=== PATIENT | female | born 1975 | race Caucasian/White ===

== ENCOUNTER 2021-06-14 11:43 | Outpatient (REF) | payer BC, SELFPAY ==
[2021-06-14 13:25] LABS: MANUAL DIFF FLAG NO
[2021-06-14 13:34] LABS: Basophils Percent Auto 0.3 % (0-2); Eosinophils Absolute Auto 0.1 X10*3/uL (0.0-0.4); Eosinophils Percent Auto 1.7 % (0-4); Hematocrit 39.3 % (37.0-47.0); Hemoglobin 12.9 g/dl (12.0-16.0); Imm Gran Abs Auto 0.01 X10*3/uL (0.00-0.03); Imm Gran Pct Auto 0.1 % (0.0-0.4); Lymphocytes Absolute Auto 2.9 X10*3/uL (1.2-4.9); Lymphocytes Percent Auto 38.6 % (20-40); Mean Corpuscular HGB Conc 32.8 g/dl (31.0-35.0); Mean Corpuscular Hemoglobin 29.6 pg (27.0-33.0); Mean Corpuscular Volume 90.1 fL (80.0-98.0); Mean Platelet Volume 9.7 fL (9.4-12.3); Monocytes Absolute Auto 0.5 X10*3/uL (0.1-1.2); Neutrophils Absolute Auto 3.9 x10*3/uL (2.0-8.3); Neutrophils Percent Auto 52.3 % (45-73); Platelet Count 313 X10*3/uL (160-400); Red Blood Count 4.36 X10*6/uL (4.20-5.50); Red Cell Distribution Width 13.2 % (11.0-16.0); White Blood Count 7.5 X10*3/uL (4.8-10.8)
[2021-06-14 13:40] LABS: Alanine Aminotransferase 14 U/L (0-31); Alkaline Phosphatase 51 U/L (39-117); Anion Gap 11 (12-20); Aspartate Amino Transferase 19 U/L (5-31); Bilirubin Total 0.5 mg/dL (0.0-1.0); Blood Urea Nitrogen 16 mg/dL (9-16); Calcium 9.6 mg/dL (8.4-10.2); Carbon Dioxide 25 mmol/L (22-29); Chloride 105 mmol/L (96-108); Cholesterol 187 mg/dL; Estimated Glomerular Filt Rate > 60; Glucose Random 87 mg/dL (60-115); HDL Cholesterol 52 mg/dL; LDL Cholesterol Calculated 106 mg/dl; Potassium 4.7 mmol/L (3.3-5.1); Sodium 136 mmol/L (135-145); Total Protein 6.7 g/dL (6.5-8.0); Triglycerides 148 mg/dL
== END 2021-06-14 11:44 | disposition home or self-care (01) ==
LOC: HO.10HDL 11:43
PROVIDERS: PCP Internal Medicine; Visit Provider Internal Medicine
DX: Z00.00 Encounter for general adult medical examination without abnormal findings (principal); F32.5 Major depressive disorder, single episode, in full remission
CPT/HCPCS: 36415; 80053; 80061; 85025

== ENCOUNTER 2021-07-27 08:02 | Outpatient (REF) | payer BC, SELFPAY ==
[2021-07-27 11:40] LABS: Rheumatoid Factor < 15.0 IU/mL (<15.0)
[2021-07-27 12:32] LABS: Erythrocyte Sedimentation Rate 3 MM/HR (0-20)
[2021-07-29 09:06] LABS: Lyme Abs Screen <0.90 index
[2021-07-31 23:47] LABS: Cyclic Citrullinated Peptide <16 UNITS
[2021-08-01 10:36] LABS: Anti Nuclear Antibody Pattern Nuclear, Homogeneous; Anti Nuclear Antibody Screen POSITIVE (NEGATIVE); Anti Nuclear Antibody Titer 1:40 titer
== END 2021-07-27 08:03 | disposition home or self-care (01) ==
LOC: HO.WFDLDS 08:02
PROVIDERS: Visit Provider Internal Medicine
DX: M13.0 Polyarthritis, unspecified (principal); M22.2X1 Patellofemoral disorders, right knee
CPT/HCPCS: 36415; 85652; 86038; 86039; 86200; 86431; 86617; 86618

== ENCOUNTER 2021-09-05 16:18 | Outpatient (REF) | payer BC, SELFPAY ==
--- NOTE | ~2021-09-05 | CT_ITS ---
EXAMINATION: CT PELVIS WITHOUT CONTRAST CLINICAL INFORMATION: Intra-abdominal and pelvic swelling, mass, lump. COMPARISON: None TECHNIQUE: Helical scanning was performed with submillimeter collimation through the pelvis. Sagittal and coronal multiplanar 2-D reconstructions were obtained. Study was done with patient doing Valsalva. This CT examination was performed using dose optimization techniques as appropriate, variously including the following: *Automated exposure control *Adjustment of mA and/or kV according to patient size (this includes techniques or standardized protocols for targeted exams where dose is matched to indication/reason for exam; i.e. extremities or head) *Use of iterative reconstruction technique DLP: 672 mGy-cm FINDINGS: PELVIS: About the right inguinal region there is a 2.4 x 1.5 x 2.6 cm fluid collection in the canal of Nuck. No definite hernia is appreciated. This represents a hydrocele. This is an extension of the perineum into the inguinal canal. No abnormal masses appreciated. No lymphadenopathy is seen. OSSEOUS STRUCTURES: Unremarkable. CT/CT pelvis wo con IMPRESSION: Right inguinal fluid collection corresponding to a benign hydrocele in the canal of Nuck.
== END 2021-09-05 16:19 | disposition home or self-care (01) ==
LOC: HO.CT 16:18
PROVIDERS: PCP Internal Medicine; Visit Provider Surgery
DX: R19.09 Other intra-abdominal and pelvic swelling, mass and lump (principal)
CPT/HCPCS: 72192

== ENCOUNTER 2022-03-02 10:43 | Outpatient (REF) | payer BC, SELFPAY ==
[2022-03-02 16:42] LABS: Urine Cytology See Pathology rpt
== END 2022-03-02 10:44 | disposition home or self-care (01) ==
LOC: HO.LAB 10:43
PROVIDERS: PCP Internal Medicine; Visit Provider Nurse Practitioner Family
DX: N94.89 Other specified conditions associated with female genital organs and menstrual cycle (principal)
CPT/HCPCS: 88112

== ENCOUNTER 2022-03-23 09:36 | Outpatient (REF) | payer BC, SELFPAY ==
--- NOTE | ~2022-03-23 | MR_ITS ---
EXAMINATION: MR PELVIS WITHOUT AND WITH CONTRAST CLINICAL INFORMATION: Hydrocele, follow-up. COMPARISON: CT scan of the pelvis dated 09/05/2021. TECHNIQUE: MRI of the pelvis was obtained before and after the administration of intravenous contrast (9 mm Gadavist) using usual sequences and projections. FINDINGS: UTERUS: Anteverted/anteflexed. The fibromuscular junction is ill-defined superficially and measures up to approximately 1.1 cm at the level the anterior body (image 16, series 4. Mild cystic changes are seen in the myometrium with heterogeneity. The endometrium is unremarkable. The cervix is closed without abnormality. OVARIES: Unremarkable. URINARY BLADDER/DISTAL URETERS: Unremarkable. BOWEL: The visualized small and large bowel are unremarkable. LYMPH NODES: No lymphadenopathy. VASCULAR: Unremarkable. OSSEOUS: Unremarkable. SOFT TISSUES: A T2 hyperintense, thin-walled nonenhancing focus is seen in the right inguinal canal measuring approximately 2.8 x 2.1 x 2.5 cm (image 22, series 7; image 26, series 5; image 26, series 9). MR/MR pelvis wo/w con IMPRESSION: 1. Small right fluid collection in the right inguinal canal (Canal of Nuck) demonstrate benign features. This correlates with CT findings. Correlation with physical exam is recommended. If this finding persists or enlarges, this can be monitored with targeted soft tissue ultrasound as clinically indicated. 2. Uterine findings suggest adenomyosis.
== END 2022-03-23 09:37 | disposition home or self-care (01) ==
LOC: HO.MRI 09:36
PROVIDERS: Visit Provider Nurse Practitioner Family
DX: N94.89 Other specified conditions associated with female genital organs and menstrual cycle (principal)
CPT/HCPCS: 72197; A9585

== ENCOUNTER → 2022-04-04 10:29 | Outpatient (BNVA) | payer BC, SELFPAY | PROVIDERS: PCP Internal Medicine; Visit Provider Nurse Practitioner Family | DX: Z13.89 Encounter for screening for other disorder (principal) ==

== ENCOUNTER 2022-10-25 12:36 | Outpatient (REF) | payer BC, SELFPAY ==
--- NOTE | ~2022-10-25 | XR_ITS ---
EXAMINATION: XR SHOULDER, RIGHT CLINICAL INFORMATION: Right shoulder pain COMPARISON: None available. TECHNIQUE: 3 views of the right shoulder. FINDINGS: The bones and soft tissues are normal. No fracture. Glenohumeral and acromioclavicular alignment is anatomic with normal joint space. No abnormal soft tissue calcifications. XR/XR shoulder RT min 2V IMPRESSION: Normal right shoulder.
== END 2022-10-25 12:37 | disposition home or self-care (01) ==
LOC: HO.HOSX 12:36
PROVIDERS: PCP Internal Medicine; Visit Provider Physician Assistant
DX: M75.101 Unspecified rotator cuff tear or rupture of right shoulder, not specified as traumatic (principal)
CPT/HCPCS: 73030

== ENCOUNTER 2022-10-25 12:36 | Outpatient (AMB) | payer BC, SELFPAY ==
--- NOTE | 2022-10-25 12:39 | A.OFFVIS_ITS ---
Intake Vital Signs 10/25/22 12:41 Height 5 ft 9 in Weight 195 lb BMI 28.8 Intake Visit Reasons: New Pt - right shoulder pain Intake Note: Jayleen is a 47 year old female who presents today as a new patient for a evaluation for her right shoulder pain. States pain started on July 09, 2022, while doing in door rock climbing. States she lost her footing and ending up holding on only with her right arm. Seen with her PCP 2 weeks after who Rx'd P.T. Patient reports P.T has helped but she was advise to see an Orthopedic for further evaluation.States she also has numbness very rarely in her fingertips. No injection for her right shoulder in the past. Allergies Penicillins Allergy (Unknown, Verified 10/25/22 12:41) rash HPI New Pt - right shoulder pain HPI Details 47-year-old female who presents in the office today, as a new patient, for an evaluation of right shoulder pain. The patient reports on 07/09/2022 his pain began while doing in-door rock climbing. She claims she lost her footing and was holding on with only her right upper extremity. She presented to her PCP 2 weeks status post the injury where she was referred to Physical Therapy. She states the Physical Therapy has helped, but she was advised to follow up with Orthopedics for further evaluation. She reports numbness occupationally in her fingertips. Patient denies a history of cortisone injections. 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 Review of Systems Const All systems reviewed & are unremarkable except as noted in HPI and below Physical Exam Vital Signs: BMI result Body Mass Index 28.8 Const General: cooperative and no acute distress Orientation/consciousness: patient oriented x3 Resp Effort & Inspection: normal respiratory effort and able to speak in complete sentences Cardio Rate: regular rate Peripheral pulses: Peripheral pulses 2+ throughout GI Palpation (GI): Soft to palpation Skin General skin exam: no rashes or lesions noted Lesions: no lesions Rashes: no rashes Neuro General: patient oriented x3 Extrem Other: Right shoulder: Normal to inspection. No ecchymosis, erythema, or edema. Full shoulder ROM in all planes. Positive cross-body reach. 4/5 strength with empty can. Negative drop arm. NVI. Assessment & Plan Assessment & Plan (1) Painful arc syndrome of right shoulder: Code(s): M75.101 - Unspecified rotator cuff tear or rupture of right shoulder, not specified as traumatic Plan Ms. Fletcher is a 47-year-old female who presents in the office today, as a new patient, for an evaluation of right shoulder pain. The patient reports on 07/09/2022 his pain began while doing in-door rock climbing. She claims she lost her footing and was holding on with only her right upper extremity. She presented to her PCP 2 weeks status post the injury where she was referred to Physical Therapy. She states the Physical Therapy has helped, but she was advised to follow up with Orthopedics for further evaluation. She reports numbness occupationally in her fingertips. Patient denies a history of cortisone injections. The patient has trialed 6 weeks of physical therapy for the right shoulder, but has plateaued. She reports she still has stiffness and pain. Therefore we will refer her for an MRI to further evaluate the integrity of the right shoulder and surrounding structures. Follow up will be after the MRI is obtained, or sooner if needed. X-rays of the right shoulder which were obtained while in the office today and were reviewed by me, Rebecca Arciniega PA-C, revealed no evidence of acute fracture or dislocation. Orders: Orders XR shoulder RT min 2V Today M25.519 - Pain in unspecified shoulder Patient Instructions: Scribed for Rebecca Arciniega PA-C by Sandra Marquez medical transcriptionist, on 10/25/2022 at 12:41 pm, EST. Coding Level of Care Code New Pt Level 4 (72001) Diagnoses Painful arc syndrome of right shoulder M75.101
[2022-10-25 12:41] VITALS: BMI 28.8
== END 2022-10-25 13:40 | disposition home or self-care (01) ==
PROVIDERS: PCP Internal Medicine; Visit Provider Physician Assistant
DX: M75.101 Unspecified rotator cuff tear or rupture of right shoulder, not specified as traumatic (principal)
CPT/HCPCS: 99204

== ENCOUNTER 2022-11-09 11:22 | Outpatient (AMB) | payer BC, SELFPAY ==
--- NOTE | 2022-11-09 11:29 | A.OFFVIS_ITS ---
Intake Vital Signs 11/09/22 11:30 Height 5 ft 9 in Weight 195 lb BMI 28.8 Intake Visit Reasons: OV-Right shoulder pain MRI Review Intake Note: Jayleen is a 47 year old female who presents today for a MRI review of her right shoulder. Allergies Penicillins Allergy (Unknown, Verified 11/09/22 11:30) rash HPI OV-Right shoulder pain MRI Review HPI Details 47-year-old female who presents in the [facility] today for a follow up of right shoulder pain and review of her MRI results. 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 No ecchymosis, erythema, or edema. Full shoulder ROM in all planes. Positive cross-body reach. 4/5 strength with empty can. Negative drop arm. NVI. Office Procedures Joint Injection/Drain Joint Injection/Drain Primary Site: right shoulder Prep: site was prepped using aseptic technique, ethochloride spray was applied and injection warnings given Injected: 80 mg of, DepoMedrol, with 8 mL of (2% plain lido ) and in the subcromial space Approach Used: posterolateral Procedure: The patient tolerated the procedure well, but had some pain with the injection and there was some relief with the local anesthesia Coding 09243 - Large joint Procedure code (CPT) selection complete Results Reviewed Results Reviewed: 11/09/22 11:51 Lidocaine HCl 2 % MPF [Xylocaine 2 % MPF] 5 ml .ROUTE .STK-MED ONE methylPREDNISolone acetate [DEPO-MedroL] 80 mg .ROUTE .STK-MED ONE Assessment & Plan Assessment & Plan (1) Painful arc syndrome of right shoulder: Code(s): M75.101 - Unspecified rotator cuff tear or rupture of right shoulder, not specified as traumatic Plan Ms. Fletcher is a 47-year-old female who presents in the office today for a follow up of right shoulder pain and review of her MRI results. The patient was offered a cortisone injection in the right shoulder with 80 mg of DepoMedrol. The patient was explained the risk, benefits, and alternatives to receiving this injection. After receiving consent for the injection, the patient had the procedure done while in office today. The patient tolerated the procedure well with no complications. I recommended for the patient to be further evaluated by Dr. Molina to further discuss MRI findings. Follow up will be with Dr. Molina, or sooner if needed. MRI of the right shoulder, obtained on 10/31/2022, revealed: 1. Nondisplaced undersurface tearing of the superior, posterosuperior, posterior, and posteroinferior labrum. 2. Mild infraspinatus tendinosis without a measurable rotator cuff tendon tear. 3. Minimal subacromial-subdeltoid bursitis. 4. Trace glenohumeral joint effusion. Patient Instructions: Scribed for Rebecca Arciniega PA-C by kameron Hancock scribe, on 11/09/2022 at 11:47 am, EST. Coding Level of Care Code Est Pt Level 3 (92869) Diagnoses Painful arc syndrome of right shoulder M75.101 CPT Codes Coding - 81926 Large joint: 06075 - Large joint ([id number])
[2022-11-09 11:30] VITALS: BMI 28.8
== END 2022-11-09 12:02 | disposition home or self-care (01) ==
PROVIDERS: PCP Internal Medicine; Visit Provider Physician Assistant
DX: S43.431A Superior glenoid labrum lesion of right shoulder, initial encounter (principal)
CPT/HCPCS: 20610; 99213

== ENCOUNTER → 2022-11-09 11:22 | Outpatient (BNVA) | payer BC, SELFPAY | PROVIDERS: PCP Internal Medicine; Visit Provider Physician Assistant | DX: M75.101 Unspecified rotator cuff tear or rupture of right shoulder, not specified as traumatic (principal) | CPT/HCPCS: 20610; J1040 ==

== ENCOUNTER 2022-11-22 12:25 | Outpatient (AMB) | payer BC, SELFPAY ==
--- NOTE | 2022-11-22 12:29 | MHC.OFFVIS ---
Intake Vital Signs 11/22/22 12:30 Height 5 ft 9 in Weight 195 lb BMI 28.8 Intake Visit Reasons: OV-Right shoulder pain Intake Note: Jayleen is a 47 year old female who presents today for a follow up of her right shoulder. She was last seen with Rebecca on 11/09/22 for an MRI review, where she also received an injection. This injection has helped but she is looking to discuss surgery. Accompanied by: Mother Allergies Penicillins Allergy (Unknown, Verified 11/22/22 12:32) rash HPI OV-Right shoulder pain HPI Details Jayleen is a 47 year old woman who presents to discuss her right RTC tear, S/P rock climbing accident, DOI: 11/09/22. She complains of pain and stiffness with daily activity, worse with overhead activity and at night. She received a steroid injection by ANEL Arciniega on 11/09/22 and says she has little pain at this time following the injection, She is able to perform most daily activities with tolerable pain, and has not been rock-climbing since her injury She has completed a course of PT, which helped, but she feels she plateaued in her recovery. 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 Review of Systems Const All systems reviewed & are unremarkable except as noted in HPI and below Physical Exam Vital Signs: BMI result Body Mass Index 28.8 Const General: no acute distress, alert and awake Orientation/consciousness: patient oriented x3 HEENT Head: Yes normocephalic and Yes atraumatic Eyes EOM: EOMs intact bilaterally Resp Effort & Inspection: normal respiratory effort and able to speak in complete sentences Cardio Jugular venous distension: no JVD Skin General skin exam: turgor normal Rashes: no rashes Neuro General: patient oriented x3 Extrem Other: Right Shoulder: Full ROM + O'Briens Psych Appearance: grossly normal Affect: normal affect Attitude: cooperative Results Reviewed Results Reviewed: I personally reviewed relevant MR images 1. Nondisplaced undersurface tearing of the superior, posterosuperior, posterior, and posteroinferior labrum. 2. Mild infraspinatus tendinosis without a measurable rotator cuff tendon tear. 3. Minimal subacromial-subdeltoid bursitis. 4. Trace glenohumeral joint effusion. Assessment & Plan Assessment & Plan (1) Superior labrum uilhpcij-ru-ogtrqrhaj (SLAP) tear of right shoulder: Code(s): S43.431A - Superior glenoid labrum lesion of right shoulder, initial encounter Plan: This is a 47 year old woman with a right shoulder SLAP tear, from an injury, DOI: 07/09/22. She reports minimal pain in her shoulder following her steroid injection on 11/09/22, and is able to perform most daily activities with tolerable pain. She had some improvement from PT and continues at-home exercises. I discussed her diagnosis and treatment options. No acute intervention warranted at this time. I recommend PT, NSAIDs, strengthening, and she continue with activity as tolerated, and be mindful to not push through pain. I ordered a new course of PT, she can follow up prn. Plan Scribed for Corbin Molina MD by Maximo Rodriguez, pediatrician/medical doctor, on 11/22/22 at 12:50 PM, EST. Orders: Orders PT Evaluation and Treatment Today S43.431A - Superior glenoid labrum lesion of right shoulder, initial encounter Coding Level of Care Code Est Pt Level 4 (66384) Diagnoses Superior labrum etplqmxr-np-jhpvxbnnp (SLAP) tear of right shoulder S43.431A
[2022-11-22 12:30] VITALS: BMI 28.8
== END 2022-11-22 12:58 | disposition home or self-care (01) ==
PROVIDERS: PCP Internal Medicine; Visit Provider Orthopaedic Surgery
DX: S43.431A Superior glenoid labrum lesion of right shoulder, initial encounter (principal)
CPT/HCPCS: 99213

== ENCOUNTER → 2022-11-22 12:25 | Outpatient (BNVA) | payer BC, SELFPAY | PROVIDERS: PCP Internal Medicine; Visit Provider Orthopaedic Surgery ==

== ENCOUNTER 2023-08-08 08:41 | Outpatient (REF) | payer BC, SELFPAY ==
[2023-08-08 10:54] LABS: MANUAL DIFF FLAG NO
[2023-08-08 11:01] LABS: Basophils Percent Auto 0.4 % (0-2); Eosinophils Absolute Auto 0.2 X10*3/uL (0.0-0.4); Eosinophils Percent Auto 2.3 % (0-4); Hemoglobin 13.2 g/dl (12.0-16.0); Imm Gran Abs Auto 0.01 X10*3/uL (0.00-0.03); Imm Gran Pct Auto 0.1 % (0.0-0.4); Lymphocytes Absolute Auto 2.4 X10*3/uL (1.2-4.9); Lymphocytes Percent Auto 33.2 % (20-40); Mean Corpuscular HGB Conc 33.8 g/dl (31.0-35.0); Mean Corpuscular Hemoglobin 29.3 pg (27.0-33.0); Mean Corpuscular Volume 86.5 fL (80.0-98.0); Mean Platelet Volume 9.1 fL (9.4-12.3); Monocytes Absolute Auto 0.6 X10*3/uL (0.1-1.2); Monocytes Percent Auto 7.9 % (2-11); Neutrophils Percent Auto 56.1 % (45-73); Platelet Count 328 X10*3/uL (160-400); Red Blood Count 4.51 X10*6/uL (4.20-5.50); White Blood Count 7.1 X10*3/uL (4.8-10.8)
[2023-08-08 11:25] LABS: Alanine Aminotransferase 15 U/L (0-31); Alkaline Phosphatase 65 U/L (39-117); Anion Gap 10 (12-20); Aspartate Amino Transferase 18 U/L (5-31); Bilirubin Total 0.5 mg/dL (0.0-1.0); Blood Urea Nitrogen 13 mg/dL (9-16); Calcium 9.1 mg/dL (8.4-10.2); Carbon Dioxide 26 mmol/L (22-29); Chloride 106 mmol/L (96-108); Cholesterol 191 mg/dL (<200); Estimated Glomerular Filt Rate > 60; Glucose Random 97 mg/dL (60-115); HDL Cholesterol 47 mg/dL (>40); LDL Cholesterol Calculated 122 mg/dL (<100); Potassium 3.9 mmol/L (3.3-5.1); Sodium 138 mmol/L (135-145); Total Protein 6.8 g/dL (6.5-8.0); Triglycerides 114 mg/dL (<150)
== END 2023-08-08 08:42 | disposition home or self-care (01) ==
LOC: HO.10HDL 08:41
PROVIDERS: Visit Provider Internal Medicine
DX: Z00.00 Encounter for general adult medical examination without abnormal findings (principal); F32.5 Major depressive disorder, single episode, in full remission; Z68.29 Body mass index [BMI] 29.0-29.9, adult
CPT/HCPCS: 36415; 80053; 80061; 85025

== ENCOUNTER 2024-11-23 12:40 | Day surgery (SDC) | payer BC, SELFPAY ==
--- OUTSIDE RECORDS SUMMARY | 2024-10-28 11:09 | XMS_ITS | Patient Health Record ---
Author Organization [facility] Address [address] [place] [address] Care Team Providers Care Mathematics Teacher Name Role Phone Leyla Soto Primary Care Provider Delvin Sanderson Unavailable [phone] Allergies Allergen (clinical drug ingredient) Drug/Non Drug Allergy documented on EMR Reaction Allergy Type Onset Date Status Pollen (e.g. tree, grass) Unknown Allergy Active Dust Mites Unknown Allergy Active Cats Unknown Allergy Active Reason For Referral Referring Provider First Name Leyla Referring Provider Last Name Tera Referring Provider Speciality Internal M edicine Referred Organization [facility] Referred Provider Delvin Torres Referred Address [address] [place] [address],[address],[place], [place],[address], Referred Provider Specialty Gastroentero logy General Notes Catalina Chand 2024 08:03:44 AM >REQUEST AN O BLUE REFERRAL FROM DR SOTO'S OFFICE FOR VISIT WITH DR TORRES ON 09-08-24 [phone], Catalina Chand 08/10/2024 09:44:25 AM >requested referral from dr soto's office Referral Priority Routine Medications Medication SIG (Take, Route, Frequency, Duration) Notes Start Date End Date Status ZyrTEC 10 MG 1 tablet Orally Once a day for 30 day(s) 09/08/2024 Active buPROPion HCl ER (XL) 300 MG 1 tablet in the morning Orally Once a day for 30 day(s) 09/08/2024 Active Amphetamine Sulfate 5 MG 1 tablet Orally Once a day 09/08/2024 Active FLUoxetine HCl 20 MG 1 capsule Orally On ce a day for 30 day(s) 09/08/2024 Active Daily Vitamin 09/08/2024 Activ e Immunizations Vaccine Route Administration Date Status Comme nts Influenza Unknown 12/17/2023 Administered Social History Tobacco Use: Social History Observation Description Date Details (start date - stop date) Never Smoker NA - NA Tobacco Control (Standard) Question Answer Notes Tobacco use: Nonsmoker AUDIT-C (Standard) Question Answer Notes Did you have a drink contain ing alcohol in the past year? Yes How often did you have a dri nk containing alcohol in the past year? 2 to 4 times a month (2 points) How many drinks did you have on a typical day when you were drinking in the past year? 1 or 2 drinks (0 point) How often did you have six o r more drinks on one occasion in the past year? Never (0 point) Points 2 Interpretation Negative Section Notes: Nonsmoker; no sig alcohol Problems Problem Type SNOMED Code ICD Code Onset Dates Problem Status W/U Status Risk Notes Problem Colon cancer screening (Z12.11) Active confirmed Problem Preprocedural examination ([id number]) Preprocedural examination (Z01.818) Active confirmed Vital Signs Temperature 98.4 degrees Fahrenheit 09/08/2024 Blood pressure diastolic 01 mm Hg 09/08/2024 Height 69 in 09/08/2024 Blood pressure systolic 001 mm Hg 09/08/2024 Weight 202 lbs 09/08/2024 BMI 29.83 kg/m2 09/08/2024 Procedures Procedure Date Ordered Date Performed Result Body Sit e COLONOSCOPY 09/08/2024 N/A Encounters Encounter Location Date Provider Diagnosis [facility] [address] [place] [id number] 09/08/2024 Delvin Torres Colon cancer screeni ng Z12.11 and Preprocedural examination Z01.818 Assessments Encounter Date Diagnosis (ICD Code) Assessment Notes Treatment Notes Treatment Clinical Notes Section Notes 09/08/2024 Colon cancer screening (ICD-10 - Z12.11) Overall, Jose appears quite well. Given her age and excellent clinical appearance, I did recommend a colonoscopy for screening purposes. We did review the rationale for that in regard to colon cancer prevention. Full consent has been obtained for this, including risks of bleeding and perforation. The procedure will be done with monitored anesthesia care. Jose was comfortable with this plan. Thank you again for allowing me to participate in Jose's care. I shall continue to keep you advised of her progress. 09/08/2024 Preprocedural examination (ICD-10 - Z01.818) Overall, Jose appears quite well. Given her age and excellent clinical appearance, I did recommend a colonoscopy for screening purposes. We did review the rationale for that in regard to colon cancer prevention. Full consent has been obtained for this, including risks of bleeding and perforation. The procedure will be done with monitored anesthesia care. Jose was comfortable with this plan. Thank you again for allowing me to participate in Jose's care. I shall continue to keep you advised of her progress. Plan Of Treatment Pending Test Test Name Order Date COLONOSCOPY 09/08/2024 Next Appt Details Provider Name:Delvin Torres , 11/23/2024 01:50:00 PM, [address] [place] [address], [phone], Insurance Providers Payer Name Payer Address Payer Phone Subscriber Number Group Number Insured Name Patient Relationship to Insured Coverage Start Date Coverage End Date [employer] [employer] [address] [place] [address] [id number] XOCHITLHERNANDEZ JOSE Self - patient is the insured 5 Medical (General) History Medical History History ICD Code Depression Denies MD,DM,CVA,Lung disease,renal dise ase ADD Surgical History Surgery Date(Month/Year) Hawkeye teeth removed 1994 Tubes in ear 1982
--- OUTSIDE RECORDS SUMMARY | 2024-10-28 11:09 | XMS_ITS | Clinical Summary ---
Author Organization [facility] Address [address] [place] [phone] Phone Care Team Providers Care Forming Acid Dumper Name Role Phone Leyla Haley MD Primary Care Provider Allergies Active Allergy Reactions Criticality Noted Date Comments Penicillin 06/29/2024 Medications No known medications Social History Tobacco Use Types Packs/Day Years Used Date Smoking Tobacco: Never Assessed Education Answer Date Recorded Are you interested in more education? Not on dave e 06/01/2024 Are you concerned about learning? Not on file 06/01/2024 No 06/01/2024 No 06/01/2024 Digital Access Answer Date Recorded No 06/01/2024 No 06/01/2024 Reliable internet access at home? Not on file 06/01/2024 Device with a working camera? Not on file Comments Unknown Sex and Gender Information Value Date Recorded Sex Assigned at Not on file Legal Sex Female 9:24 AM EDT Gender Identity Not on file Sexual Orientation Not on file Plan of Treatment Health Maintenance Due Date Last Done Comments Adult Td,Tdap Booster 1977 LIPID PANEL 1977 DEPRESSION SCREENING 1989 SMOKING Hx and SMOKELESS TOBACCO SCREENING 1990 HEPATITIS C SCREENING 05/21/1995 HIV ONE-TIME SCREENING (18-6 5 YEARS) 05/21/1995 PAP SMEAR 1998 COLOGUARD 2022 COLONOSCOPY 2022 COLORECTAL CANCER SCREENING 2022 FIT TEST 2022 FOBT 2022 SIGMOIDOSCOPY 2022 VIRTUAL COLONOSCOPY 2022 INFLUENZA VACCINE (#1) 2024 COVID-19 VACCINE (2023-2 5 season) 2024 MAMMOGRAM 06/04/2026 06/04/2024, 06/04/2024 HEPATITIS A VACCINES Aged Out No long er eligible based on patient's age to complete this topic HIB VACCINES Aged Out No longer eligi ble based on patient's age to complete this topic MENINGOCOCCAL VACCINES (ACWY) Aged Out No longer eligible based on patient's age to complete this topic MENINGOCOCCAL VACCINES (B) Aged Out N o longer eligible based on patient's age to complete this topic PNEUMOCOCCAL VACCINES (0-49 years) Aged Out No longer eligible b ased on patient's age to complete this topic Medical Devices Not on file [place] [place] [address] [facility] Care Teams Forming Acid Dumper Relationship Specialty Start Date End Date Leyla Haley MD [address] [place] [address] [place] [address] PCP - General Internal Medicine 06/01/24 Additional Source Comments The information contained in this document represents components of the legal health record. It is not the complete legal health record.[facility]
--- OUTSIDE RECORDS SUMMARY | 2024-10-28 11:09 | XMS_ITS | Clinical Summary ---
Author Organization [facility] Address [address] [place] [id number] Phone Care Team Providers Care Circulation Representative Name Role Phone Leyla Haley MD Primary Care Provider [phone] Social History Tobacco Use Types Packs/Day Years Used Date Smoking Tobacco: Never Assessed Comments No Sex and Gender Information Value Date Recorded Sex Assigned at Female 05/04/2024 11:44 AM EDT Legal Sex Female 9:30 AM EST Gender Identity Female 05/04/2024 11:44 AM EDT Sexual Orientation Straight 05/04/2024 11 :44 AM EDT Obstetrics History Para Term AB IAB SAB Ectopic Multiple Livin g Live Births 2 Last Filed Vital Signs Vital Sign Reading Time Taken Comments Blood Pressure - - Pulse - - Temperature - - Respiratory Rate - - Oxygen Saturation - - Inhaled Oxygen Concentration - - Weight 90.7 kg (200 lb) 06/04/2024 9:37 AM EDT Height 175.3 cm (5' 9 ) 06/04/2024 9:37 AM EDT Body Mass Index 29.53 06/04/2024 9:37 AM EDT Plan of Treatment Health Maintenance Due Date Last Done Comments DTaP,Tdap,and Td Vaccines (1 - Tdap) 1996 Hepatitis B Vaccines (1 of 3 - 19+ 3-dose series) 1996 Cervical Cancer Screening: Pap Smear 1998 Colorectal Cancer Screening: Colonoscopy 01/22/2022 HIV Screening 01/22/2022 Hepatitis C Screening 01/22/2022 Social Influencers of Health Screening 01/22/2022 COVID-19 Vaccine ( - season) 2023 Depression Screening 02/26/2024 Influenza Vaccine (#1) 2024 Breast Cancer Screening 06/04/2026 06/05/19, 02/27/2023, 05/11/2021, Additional history exists HIB Vaccines Aged Out No longer eligi ble based on patient's age to complete this topic HPV Vaccines Aged Out No longer eligi ble based on patient's age to complete this topic Hepatitis A Vaccines Aged Out No long er eligible based on patient's age to complete this topic IPV Vaccines Aged Out No longer eligi ble based on patient's age to complete this topic MMR Vaccines Aged Out No longer eligi ble based on patient's age to complete this topic Meningococcal ACWY Vaccine Aged Out N o longer eligible based on patient's age to complete this topic Meningococcal B Vaccine Aged Out No l onger eligible based on patient's age to complete this topic Pneumococcal Vaccine: Pediatrics (0 to 5 Years) and At-Risk Patients (6 to 49 Years) Aged Out No longer eligible based on patient's age to complete this topic RSV Immunization Patients Under 20 months Aged Out No longer eligible based on patient's age to complete this topic Varicella Vaccines Aged Out No longer eligible based on patient's age to complete this topic Procedures Procedure Name Priority Date/Time Associated Diagnosis Comments MG MAMMO DIGITAL SCREENING W ELVA BILAT Routine 06/04/2024 9:42 AM EDT Encounter for screening mammogram for breast cancer from Last 3 Months or Most Recently Relevant to Health Maintenance Results * MG Mammo Digital Screening w Elva bilat (06/04/2024 9:42 AM EDT) Anatomical Region Laterality Modality Breast Bilateral Mammography 06/04/2024 11:3 6 AM EDT Impressions 06/04/2024 11:44 AM EDT No mammographic evidence of malignancy. No suspicious interval change. A negative mammogram in the presence of a clinically suspicious palpable abnormality does not preclude the possibility of malignancy or alter the indications for biopsy. ASSESSMENT: BI-RADS 2: BENIGN RECOMMENDATION(S): 1: Routine screening mammogram BILATERAL in 1 year. [facility]amm[facility] location[facility] [address], [id number] -------- FINAL REPORT -------- Dictated By: Damir Solorio Dictated Date: 06/04/2024 11:36 ET Assigned Physician: Damir Solorio Reviewed and Electronically Signed By: Damir Solorio Signed Date: 06/04/2024 11:44 ET Workstation ID: [id number] Transcribed By: Self Edit Transcribed Date: 06/04/2024 11:36 ET Narrative 06/04/2024 11:44 AM EDT EXAM: SCREENING MAMMOGRAPHY, BILATERAL HISTORY: SCREENING. No additional history. COMPARISON: 02/23/23, 05/11/21, 05/04/20 TECHNIQUE: Synthesized CC and MLO projections of each breast. Tomosynthesis of each breast in the CC and MLO projections. ADDITIONAL IMAGING: None Computer-aided detection was employed with the [employer] AI 3-D. TISSUE DENSITY: The breasts are heterogeneously dense, which may obscure small masses. (BI-RADS category C) FINDINGS: RIGHT BREAST: No suspicious mass. No suspicious calcification. No distortion. No additional suspicious right breast findings LEFT BREAST: No suspicious mass. No suspicious calcification. No distortion. Stable circumscribed equal density 0.8 cm oval mass in the 6 o'clock position. Procedure Note Dmair Solorio MD - 06/04/2024 EXAM: SCREENING MAMMOGRAPHY, BILATERAL HISTORY: SCREENING. No additional history. COMPARISON: 02/23/23, 05/11/21, 05/04/20 TECHNIQUE: Synthesized CC and MLO projections of each breast.Tomosynthesis of each breast in the CC and MLO projections. ADDITIONAL IMAGING: None Computer-aided detection was employed with the [employer] AI 3-D. TISSUE DENSITY: The breasts are heterogeneously dense, which may obscuresmall masses. (BI-RADS category C) FINDINGS: RIGHT BREAST: No suspicious mass. No suspicious calcification. No distortion. Noadditional suspicious right breast findings LEFT BREAST: No suspicious mass. No suspicious calcification. No distortion. Stablecircumscribed equal density 0.8 cm oval mass in the 6 o'clock position. IMPRESSION: No mammographic evidence of malignancy. No suspicious interval change. A negative mammogram in the presence of a clinically suspicious palpableabnormality does not preclude the possibility of malignancy or alter theindications for biopsy. ASSESSMENT: BI-RADS 2: BENIGN RECOMMENDATION(S): 1: Routine screening mammogram BILATERAL in 1 year. [facility]amm[facility] location: [facility] at [address], [address] -------- FINAL REPORT -------- Dictated By: Damir Solorio Dictated Date: 06/04/2024 11:36 ET Assigned Physician: Damir Solorio Reviewed and Electronically Signed By: Damir Solorio Signed Date: 06/04/2024 11:44 ET Workstation ID: [id number] Transcribed By: Self Edit Transcribed Date: 06/04/2024 11:36 ET us Self Referral Sppl IMG BI PROCEDURES Final Resul t from Last 3 Months or Most Recently Relevant to Health Maintenance Insurance [facility] Care Teams Circulation Representative Relationship Specialty Start Date End Date Leyla Haley MD [address] [place] [address] [place] [id number] PCP - General Internal Medicine 05/04/24
[2024-11-19 13:29] VITALS: BMI 29.8
--- NOTE | 2024-11-20 08:44 | HO.ANESPROP2 ---
Documented by User: Diann Gonzalez NP 11/20/24 08:45 HPI - Anesthesia Eval Consult details Narrative: 49yo F for Colonoscopy PMFSH Active Problems Active Problems: All Active Problems Superior labrum [id number] (SLAP) tear of right shoulder (Acute) Painful arc syndrome of right shoulder (Acute) Hydrocele of canal of [place]uck (Acute) Asthma (Acute) Right groin mass (Acute) Past Medical History Medical History ADD (attention deficit disorder) Depression Family History Family History Father Melanoma Maternal Grandmother Melanoma Surgical History Surgical History Hx of wisdom tooth extraction History of placement of ear tubes (~1982) Social History Social History Alcohol intake: current Alcohol intake frequency: holidays/special occasions only Patient Tobacco Use Status: Former Tobacco user Use of substances other than those prescribed or required for medical reasons: No Are you DNR?: No Advance Directives: No Advance Directives Information Provided: Yes Current occupational status: employed 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 Allergies Allergy/AdvReac Type Severity Reaction Status Date / Time Penicillins Allergy Unknown rash Verified 11/23/24 12:55 Home Medications ?Medication ?Instructions ?Recorded ?Confirmed ?Last Taken ?Type fluoxetine 20 mg capsule 20 mg PO DAILY 08/16/21 11/23/24 Unknown History cetirizine 10 mg capsule (Zyrtec) 10 mg PO DAILY 04/04/22 11/23/24 Unknown History multivitamin 1 tab PO DAILY 04/04/22 11/23/24 Unknown History bupropion HCl 300 mg 24 hr tablet, 300 mg PO DAILY 11/19/24 11/23/24 Unknown History extended release dextroamphetamine-amphetamine 5 mg 5 mg PO DAILY 11/19/24 11/23/24 Unknown History tablet Exam Height,Weight and Vital Signs: Height 5 ft 9 in Weight 91.626 kg Assessment and Plan Assessment Anesthesia Assessment: Chart Reviewed Documented by User: Idalia Boss MD 11/23/24 16:05 [facility] Past Medical History Medical History ADD (attention deficit disorder) Depression Family History Family History Father Melanoma Maternal Grandmother Melanoma Family history of problems with anesthesia: No Surgical History Surgical History Hx of wisdom tooth extraction History of placement of ear tubes (~1982) History of Problems with Anesthesia: No Social History Social History Alcohol intake: current Alcohol intake frequency: holidays/special occasions only Patient Tobacco Use Status: Former Tobacco user Use of substances other than those prescribed or required for medical reasons: No Are you DNR?: No Advance Directives: No Advance Directives Information Provided: Yes Current occupational status: employed 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 Allergies Allergy/AdvReac Type Severity Reaction Status Date / Time Penicillins Allergy Unknown rash Verified 11/23/24 12:55 Home Medications ?Medication ?Instructions ?Recorded ?Confirmed ?Last Taken ?Type fluoxetine 20 mg capsule 20 mg PO DAILY 08/16/21 11/23/24 Unknown History cetirizine 10 mg capsule (Zyrtec) 10 mg PO DAILY 04/04/22 11/23/24 Unknown History multivitamin 1 tab PO DAILY 04/04/22 11/23/24 Unknown History bupropion HCl 300 mg 24 hr tablet, 300 mg PO DAILY 11/19/24 11/23/24 Unknown History extended release dextroamphetamine-amphetamine 5 mg 5 mg PO DAILY 11/19/24 11/23/24 Unknown History tablet Exam Airway Mallampati Class: II TM Dist: >3cm Neck ROM: Full Heart: rrr Lungs: cta Assessment and Plan Assessment Anesthesia Assessment: Anesthesia Plan Discussed Final Anesthetic Review Family History of Problems with Anesthesia: No History of Problems with Anesthesia: No NPO: Yes ASA Class: II Final Preanesthetic Review: No Changes in Pt Med Stat, Meds/Allgs Chart Reviewed and Consent Obtained/Reviewed Patient Risk: Low Procedure Risk: Low Anesthetic Plan Anesthetic Plan: MAC: Disposition: Standard PACU
[2024-11-23 12:45] VITALS: BMI 29.1
[2024-11-23 12:57] LABS: UPreg QC Valid YES
[2024-11-23 13:03] VITALS: BP 118/73; PULSE 79; RESP 15; TEMP 37; O2SAT 96
[2024-11-23] MEDS: Lactated Ringers 1,000 ML 100 ML IVCONT (13:10)
[2024-11-23 17:10] VITALS: BP 112/69; PULSE 75; RESP 16; TEMP 36.3; O2SAT 99
--- NOTE | 2024-11-23 17:16 | PM.OP ---
Brief Operative Note Date of Service: 11/23/24 Pre-op diagnosis: Screening Post-op diagnosis: other (Occasional diverticulosis, Internal hemorrhoids) Procedure: Colonoscopy to the cecum and TI Surgeon: Delvin Bonilla MD Anesthesia: MAC Was an Housing Management Representative used for this Procedure?: No Estimated blood loss (mL): 0 Pathology: none sent Condition: stable Disposition: PACU
[2024-11-23 17:25] VITALS: BP 112/79; PULSE 69; RESP 16; TEMP 36.6; O2SAT 98
--- NOTE | 2024-11-24 03:28 | OP_ITS ---
DATE OF SERVICE: 11/23/2024 SURGEON: Delvin Bonilla MD INDICATIONS: The patient presents for evaluation of colorectal cancer screening. Full consent was obtained from her for this, including risks of bleeding and perforation. PREOPERATIVE DIAGNOSIS: POSTOPERATIVE DIAGNOSIS: Colorectal cancer screening, occasional diverticulosis, internal hemorrhoids. PROCEDURE PERFORMED: Colonoscopy to the cecum and terminal ileum. ESTIMATED BLOOD LOSS: COMPLICATIONS: ANESTHESIA: Medication used, monitored anesthesia care. ASSISTANTS: SPECIMENS: PREOPERATIVE DIAGNOSES: Colorectal cancer screening. DESCRIPTION OF PROCEDURE: The patient was placed in the left lateral decubitus position. The digital rectal exam revealed some minimal hemorrhoidal tissue. The Olympus video pediatric colonoscope was entered into the rectum and advanced easily to the cecum. Once in the cecum, I did identify normal-appearing cecal pouch with appendiceal orifice and a normal-appearing ileocecal valve. The terminal ileum was cannulated and appeared normal. The scope was withdrawn back in the colon. The entire cecum and ileocecal valve appeared normal. The scope was slowly withdrawn assessing all mucosal surfaces carefully. Preparation was excellent. I did not visualize any sign of polyps, colitis, nor angiodysplasia. There was an occasional diverticulum noted in the sigmoid colon. In the rectum, the scope was retroflexed visualizing internal hemorrhoids, but no other pathology. The rectal mucosa appeared normal. The scope was straightened and withdrawn from the patient. She tolerated the procedure well and was returned to the recovery area in stable condition. IMPRESSION: 1. Occasional sigmoid diverticulosis. 2. Internal hemorrhoids. PLAN: Given today's negative colonoscopy and no family history of colon cancer, I would recommend a repeat colonoscopy in 10 years for further screening. She will otherwise see me on a p.r.n. basis. MD ROBY Fitzpatrick/ROSIO / [id number]
== END 2024-11-23 17:30 | disposition home or self-care (01) ==
PROVIDERS: Nurse Practitioner; PCP Internal Medicine; Visit Provider Internal Medicine
PROC: 0DJD8ZZ Inspection of Lower Intestinal Tract, Via Natural or Artificial Opening Endoscopic (ICD-10-PCS; CPT 45378; principal; 2024-11-23 13:50)
DX: Z12.11 Encounter for screening for malignant neoplasm of colon (principal); K57.30 Diverticulosis of large intestine without perforation or abscess without bleeding; K64.8 Other hemorrhoids; F98.8 Other specified behavioral and emotional disorders with onset usually occurring in childhood and adolescence; F32.A Depression, unspecified; Z79.899 Other long term (current) drug therapy
CPT/HCPCS: 45378; 81025; J2003; J2704